=== PATIENT | male | born 2000 | race Caucasian/White ===

== ENCOUNTER 2024-02-29 10:40 | Emergency (ER) | payer OTHER, SELFPAY ==
--- NOTE | ~2024-02-29 | XR_ITS ---
EXAMINATION: XR THORACIC SPINE CLINICAL INFORMATION: Lifting injury. Pain COMPARISON: None available. TECHNIQUE: Frontal and lateral views of the thoracic spine FINDINGS: Habitus limits detail. The bones are not well evaluated. There is a broad convex right spinal curve. The endplates are not well visualized. There is no convincing acute fracture or dislocation. No large paraspinal abnormality. XR/XR thoracic spine 3V IMPRESSION: Limited evaluation of the thoracic spine. No convincing fracture
[2024-02-29 10:49] VITALS: BP 129/73; BP 146/73; PULSE 81; PULSE 90; RESP 18; TEMP 36.7; O2SAT 96; BMI 52.0
--- NOTE | 2024-02-29 11:10 | ED.BACK ---
HPI - Back Pain/Injury General Chief Complaint: Back Pain/Injury Stated Complaint: MIDDLE BACK PAIN PER EMS Time Seen by Provider: 02/29/24 10:44 Source: patient and EMS Mode of arrival: EMS Limitations: no limitations History of Present Illness HPI Narrative: Patient is a 23-year-old male who presents to the emergency department via EMS coming from work today. He works at [employer]. 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 He denies any popping sensation that was felt. He denies any history of pain in this area in the past. He has not been experiencing any recent chest pain, shortness of breath, URI symptoms, cough, lower extremity redness pain or swelling. Has no personal history of DVT/PE/malignancy Denies fevers, chills, burning with micturition, urinary frequency/urgency/hesitancy, bladder or bowel dysfunction, numbness or tingling of the perineum or bilateral legs. Denies any recent surgical procedures, any known immune compromising conditions, personal history of cancer, or IV drug usage. MD elicited complaint: back pain Related Data Previous Rx's ?Medication ?Instructions ?Recorded cyclobenzaprine 10 mg tablet 10 mg PO BEDTIME PRN muscle spasm 02/29/24 #10 tabs Allergies Allergy/AdvReac Type Severity Reaction Status Date / Time No Known Allergies Allergy Verified 02/29/24 10:51 Review of Systems Review of Systems: Yes all other systems are reviewed and are negative [facility] Past Medical History Attestation statement: The following information was validated with the patient. Source: old records reviewed Social History Social History Advance Directives: No Advance Directives Information Provided: No Do you have a plan to hurt others: No Plan Physical Exam Vital Signs: Vital Signs: Last Vital Signs Temp 98.1 F 02/29/24 10:49 Pulse 81 02/29/24 10:49 Resp 18 02/29/24 10:49 BP 129/73 02/29/24 10:49 Pulse Ox 96 02/29/24 10:49 O2 Del Method Room Air 02/29/24 10:49 BMI result Body Mass Index 52.0 Appearance: Alert.?Oriented to person, place and time. No acute distress.?Normal affect. Eyes: Pupils equal, round and reactive to light.? ENT: Pharynx normal.?? Neck: Normal inspection.? Neck supple.?? CVS: Heart sounds normal. Normal heart rate and rhythm.? Pulses normal; bilateral radial pulses 2+, bilateral posterior tibial/dorsalis pedis pulses 2+.? Respiratory: No respiratory distress.? Lung sounds clear to auscultation bilaterally?. No crepitus. No palpable deformities along the ribs. ? Abdomen: Soft and non-tender. Normoactive bowel sounds. No pulsatile mass.?? Skin: Skin warm and dry.? Normal skin color.? Normal skin turgor.?? Extremities: No lower extremity edema.? No calf ttp? Back: + moderate paraspinal muscular tenderness from left lower thoracic region to lateral ribs No midline spinal tenderness, step-off's, or deformity. Full ROM intact in bilateral lower extremities. No rashes, lesions, areas of induration or fluctuance, or signs of infection noted., Neuro: Moves all extremities spontaneously. Sensation to light touch intact bilaterallyNo ataxia, gait normal and steady.. No focal neuro deficits. Medications Administered Discontinued Medications Generic Name Dose Route Start Last Admin Trade Name Freq PRN Reason Stop Dose Admin Cyclobenzaprine HCl 10 mg 02/29/24 11:16 02/29/24 11:49 Cyclobenzaprine Hcl 10 Mg Tablet PO 02/29/24 11:17 10 mg ONCE ONE Administration Medical Decision Making Medical Decision Making [facility] Narrative: Patient is a 23-year-old morbidly obese male who presents emergency department for evaluation of mid left lateral thoracic back pain after a lifting injury while at work. Lung sounds are clear, not consistent with pneumothorax, unlikely to have rib fracture, no palpable crepitus and no respiratory distress. He has no midline thoracic spine tenderness, step-offs, deformities to suggest any acute fracture. Pain is significantly exacerbated upon palpation or with movement. He received ketorolac 30 mg IM pre-hospital from EMS without much improvement. At this time I suspect that Pain is most consistent with muscular pain, although cannot completely exclude herniated disc. He had significant improvement in his pain with Flexeril. On neurological exam there are no deficits. XR was obtained though due to body habitus was a limited evaluation but no convincing fracture present. Not consistent with spinal infection, epidural abscess, AAA, epidural abscess, or dissection. No high risk past medical history including incontinence, fever, immunosuppression, recent surgery or lumbar puncture, coagulopathy, significant trauma, recent unintentional weight loss, pulsatile mass, history of cancer, history of TB, history of IV drug use that would warrant MRI or CT. Not consistent with pyelonephritis, urinary tract infection, renal calculi, appendicitis, diverticulitis. On exam no concern for cauda equina syndrome. No imaging is currently indicated at this time. Plan for discharge home, and follow-up with primary care provider, and patient agreed with plan. Differential Diagnosis Differential Diagnoses: The differential diagnosis associated with the presentation includes ( see narrative above) Admission/Observation Consideration of admission/observation: Escalation of care including admission/observation considered ( see narrative above) Independent Interpretation I performed an independent interpretation of an: Plain X-Ray (No acute fracture) Radiology Impression Discussion of test interpretation with radiology: I have reviewed the radiologist's reading. Radiologist Impression: XR/XR thoracic spine 3V IMPRESSION: Limited evaluation of the thoracic spine. No convincing fracture Independent Historian Clinical information obtained from an independent historian. History obtained from or confirmed by: EMS Prescription Management I considered prescription management with: Pain Medication Discharge Plan Discharge Clinical Impression: Acute thoracic myofascial strain Patient Disposition: Home, Self-Care Instructions: Muscle Strain (ED), R.I.C.E. Treatment (ED) Additional Instructions: You can take ibuprofen 200 mg, 3 tablets (600mg) every 6-8 hours as needed for pain, in addition to Tylenol 500 mg, 2 tablets (1,000mg) every 4-6 hours as needed for pain, but not to exceed 3 doses daily (3,000mg).? For pain that is unrelieved by ibuprofen/Tylenol you may take the muscle relaxer that was prescribed. Cyclobenzaprine/Flexeril. This medication may make you drowsy. You should not drive, drink alcohol, or work while taking this medication. Prescriptions: New cyclobenzaprine 10 mg tablet 10 mg PO BEDTIME PRN (Reason: muscle spasm) Qty: 10 0RF Referrals: Physician,Unknown J [Primary Care Provider] - Print Language: Kiswahili
[2024-02-29] MEDS: Cyclobenzaprine HCl 10 MG TABLET PO (11:49)
== END 2024-02-29 15:15 | disposition home or self-care (01) ==
PROVIDERS: Emergency Provider Emergency Medicine
DX: S29.012A Strain of muscle and tendon of back wall of thorax, initial encounter (principal); X50.9XXA Other and unspecified overexertion or strenuous movements or postures, initial encounter; Y93.89 Activity, other specified; Y92.511 Restaurant or cafe as the place of occurrence of the external cause; Y99.0 Civilian activity done for income or pay
CPT/HCPCS: 72072; 99283